=== PATIENT | male | born 1985 | race Caucasian/White ===

== ENCOUNTER 2019-09-05 09:30 | Inpatient (IN) | payer OTHER ==
[~2019-09-05] VITALS: Ht 185.4 cm; Wt 142.9 kg
[~2019-09-05 09:30] MED LIST: HYDROCODONE-AP1 EAC6 PO; IBUPROFEN 800800 M1 PO; MEDROLDOSEPACK PO; NAPROSYN500 MG PO; PHENERGAN 25 MG25 M1 PO; ROBAXIN 750 MG750 M1 PO; TRAMADOL 50 MG50 MG PO; TRAZODONE 150150 M1 PO; ULTRAM 50MG TAB50 MG PO; XANAX1 MG PO; ZANTAC 150MG T150 M1 PO
[2019-09-05 09:40] VITALS: BP 138/87
[2019-09-05 10:11] LABS: ABSOLUTE BASOPHILS 0.2 thou/uL (0.0-0.2); ABSOLUTE EOSINOPHILS 0.2 thou/uL (0.0-0.7); ABSOLUTE LYMPHOCYTES 3.3 thou/uL (0.8-5.3); ABSOLUTE MONOCYTES 1.9 thou/uL (0.0-1.2); ABSOLUTE NEUTROPHILS 5.8 thou/uL (1.6-8.1); BASOPHILS 1.4 %; EOSINOPHILS 1.6 %; HEMATOCRIT 48.5 % (42.0-52.0); HEMOGLOBIN 16.8 gm/dL (14.0-18.0); LYMPHOCYTES 28.9 %; MCH 31.3 pg (26.0-34.0); MCHC 34.6 g/dL (28.0-37.0); MCV 90.5 fL (80.0-100.0); MONOCYTES 16.7 %; MPV 9.1 fl. (7.2-11.1); NUCLEATED RBCS 0 /100WBC; PLATELET COUNT* 261 thou/uL (150-400); POLYS 51.4 %; RBC 5.36 mil/uL (4.50-6.00); RDW-CV 13.6 % (10.5-14.5); WBC 11.4 thou/uL (4.0-11.0)
[2019-09-05 10:16] LABS: CALCIUM 9.6 mg/dL (8.5-10.1); CREATININE 1.3 mg/dL (0.6-1.3); POTASSIUM 4.1 mmol/L (3.5-5.1)
[2019-09-05 10:31] LABS: ALBUMIN 4.1 g/dL (3.4-5.0); MAGNESIUM 1.9 mg/dL (1.8-2.4); TOTAL BILIRUBIN 0.4 mg/dL (<0.1-1.0); TOTAL PROTEIN 8.1 g/dL (6.4-8.2)
[2019-09-05 12:02] VITALS: BP 138/87
[2019-09-05 13:00] VITALS: BP 133/74
--- NOTE | 2019-09-05 15:46 | EKG ---
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
[2019-09-05 16:00] LABS: URINE BLOOD NEGATIVE (Negative); URINE CLARITY CLEAR; URINE COLOR YELLOW; URINE GLUCOSE-RANDOM NEGATIVE (Negative); URINE KETONES 1+ (Negative); URINE LEUKOCYTES-REFLEX NEGATIVE (Negative); URINE NITRITE-REFLEX NEGATIVE (Negative); URINE PROTEIN NEGATIVE (Negative); URINE SPECIFIC GRAVITY >= 1.030 (1.005-1.030); URINE UROBILINOGEN 0.2 E.U./dl (0.2-1.0)
[2019-09-05 16:04] LABS: URINE BILIRUBIN 1+ (Negative)
[2019-09-05 16:05] LABS: ICTOTEST (BILI CONFIRMATORY) Negative (Negative)
[2019-09-05 16:07] LABS: AMP/METHAMP Negative (Negative); BARBITURATES Negative (Negative); BENZODIAZEPINES Negative (Negative); COCAINE Negative (Negative); METHADONE Negative (Negative); OPIATES POSITIVE (Negative); PCP Negative (Negative); THC POSITIVE (Negative)
[2019-09-05 16:36] VITALS: BP 140/77
[2019-09-05] MEDS ORDERED: FA-80.8 MG PO (17:08)
[2019-09-05 17:17] VITALS: BP 140/77
--- NOTE | 2019-09-05 17:35 | NUR ---
PT A&OX4 VSS. PT STANDING IN ROOM PRIOR TO DC. PT DISCONNECTED HIS FLUIDS WITHOUT NURSING STAFF ASSISTANCE. PT MOTHER AT BEDSIDE. PT STATES HE WILL NOT STAY OVERNIGHT. PT STATES HE HAS NIGHT TERRORS AND MUST BE "SEDATED" TO STAY. PT WAS OFFERED MEDICATIONS FOR ANXIETY, BUT CONTINUES TO DECLINE STAYING. DR BRIONES NOTIFIED. PT EDUCATED OF POSSIBLE RISKS TO HIS HEALTH. PT EDUCATED THAT CONTINUED DEHYDRATION CAN CAUSE KIDNEY DAMAGE. PT STATES HE UNDERSTANDS IT IS IS RESPONSIBILITY TO CONINUE HYDRATION AT HOME FOLLOWING DC. PT IV DC'D FROM [facility], [facility] AND [facility] APPLIED. NO REDNESS/SWELLING AT SITE. PT RECEIVED TOTAL 4L NS THIS ADMISSION. PT AND MOTHER STATE UNDERSTANDING OF DC INSTRUCTIONS PROVIDED. PT DECLINES WC AND AMBULATES FROM UNIT. GAIT STEADY. PT ACCOMPANIED FROM UNIT BY NURSING STAFF.
== END 2019-09-05 17:30 | disposition home or self-care (01) | DRG 566 ==
LOC: M.ERS 09:30 → M.TBA-ER 11:24 → M.3W 12:13
PROVIDERS: Emergency Medicine Emergency Medical Services; ADMIT Internal Medicine
DX: T79.6XXA Traumatic ischemia of muscle, initial encounter (principal); F41.9 Anxiety disorder, unspecified; F17.210 Nicotine dependence, cigarettes, uncomplicated; F32.9 Major depressive disorder, single episode, unspecified; X58.XXXA Exposure to other specified factors, initial encounter; E86.0 Dehydration; Z88.8 Allergy status to other drugs, medicaments and biological substances; Z79.899 Other long term (current) drug therapy

== ENCOUNTER 2019-09-09 12:46 | Emergency (ER) | payer OTHER ==
[~2019-09-09] VITALS: Ht 185.4 cm; Wt 158.8 kg
[~2019-09-09 12:46] MED LIST changes: +FA-80.8 MG PO
[2019-09-09 13:17] LABS: ABSOLUTE EOSINOPHILS 0.4 thou/uL (0.0-0.7); ABSOLUTE LYMPHOCYTES 3.2 thou/uL (0.8-5.3); ABSOLUTE MONOCYTES 1.3 thou/uL (0.0-1.2); ABSOLUTE NEUTROPHILS 4.6 thou/uL (1.6-8.1); BASOPHILS 0.3 %; EOSINOPHILS 4.3 %; HEMOGLOBIN 15.4 gm/dL (14.0-18.0); LYMPHOCYTES 33.8 %; MCH 31.6 pg (26.0-34.0); MCHC 34.3 g/dL (28.0-37.0); MCV 92.1 fL (80.0-100.0); MONOCYTES 13.4 %; MPV 9.7 fl. (7.2-11.1); NUCLEATED RBCS 0 /100WBC; PLATELET COUNT* 224 thou/uL (150-400); POLYS 48.2 %; RBC 4.89 mil/uL (4.50-6.00); RDW-CV 13.9 % (10.5-14.5); WBC 9.5 thou/uL (4.0-11.0)
[2019-09-09 13:25] LABS: URINE BILIRUBIN NEGATIVE (Negative); URINE BLOOD NEGATIVE (Negative); URINE CLARITY CLEAR; URINE COLOR YELLOW; URINE GLUCOSE-RANDOM NEGATIVE (Negative); URINE KETONES NEGATIVE (Negative); URINE LEUKOCYTES-REFLEX NEGATIVE (Negative); URINE NITRITE-REFLEX NEGATIVE (Negative); URINE PROTEIN NEGATIVE (Negative); URINE SPECIFIC GRAVITY 1.015 (1.005-1.030); URINE UROBILINOGEN 0.2 E.U./dl (0.2-1.0)
[2019-09-09 13:34] LABS: CREATININE 1.1 mg/dL (0.6-1.3); POTASSIUM 3.7 mmol/L (3.5-5.1)
[2019-09-09 13:56] LABS: ALBUMIN 3.6 g/dL (3.4-5.0); TOTAL BILIRUBIN 0.1 mg/dL (<0.1-1.0); TOTAL PROTEIN 7.1 g/dL (6.4-8.2)
[2019-09-09 14:54] VITALS: BP 149/87
== END 2019-09-09 14:55 | disposition home or self-care (01) ==
LOC: M.ERS 12:46
PROVIDERS: Family Medicine
DX: M62.82 Rhabdomyolysis (principal); F17.210 Nicotine dependence, cigarettes, uncomplicated; Z90.49 Acquired absence of other specified parts of digestive tract; Z88.8 Allergy status to other drugs, medicaments and biological substances